=== PATIENT | female | born 1985 | race Caucasian/White ===

== ENCOUNTER 2016-08-18 05:50 | Inpatient (IN) | payer BC ==
[~2016-08-18] VITALS: Ht 162.6 cm; Wt 106.9 kg
[2016-08-18] VITALS (7 sets, daily range): BP systolic 109–131; BP diastolic 61–77; PULSE 71–96; RESP 18–20; Ht 162.6 cm; Wt 106.9 kg
[~2016-08-18 05:50] MED LIST: IBUP800T25 PO; PERCOCET PO; PREN1TAB62 PO
[2016-08-18] MEDS ORDERED: LACTATED RINGER'S 1,000 ML IV SCH (06:14)
[2016-08-18] MEDS ORDERED: CEFAZOLIN 2 GM/50 ML (PMX) 50 ML IV SCH (06:30)
[2016-08-18] MEDS ORDERED: OXYTOCIN 30 UNITS/LR 500 ML IV PRN ×2 (06:30→09:30)
[2016-08-18] MEDS ORDERED: OXYTOCIN 30 UNITS/LR 500 ML IV SCH ×2 (06:30→10:30)
[2016-08-18] MEDS ORDERED: CARBOPROST 250 MCG INJ IM PRN ×2 (06:30→09:30)
[2016-08-18] MEDS ORDERED: MISOPROSTOL 200 MCG TAB PR PRN ×2 (06:30→09:30)
[2016-08-18] MEDS ORDERED: METHYLERGONOVINE 0.2 MG INJ IM PRN ×2 (06:30→09:30)
[2016-08-18 06:31] LABS: ADD SCAN DIFF NO
[2016-08-18 06:33] LABS: BASOPHILS % 0.3 % (0.0-2.0); EOSINOPHILS % 0.5 % (0.0-7.0); HEMATOCRIT 34.2 % (37.0-47.0); HEMOGLOBIN 10.5 g/dl (12.0-16.0); LYMPHOCYTES # 2.6 10^3/ul (0.8-2.9); LYMPHOCYTES % 32.1 % (15.0-51.0); MEAN CORPUSCULAR HEMOGLOBIN 23.2 pg (29.0-33.0); MEAN CORPUSCULAR HGB CONC 30.7 g/dl (32.0-37.0); MEAN CORPUSCULAR VOLUME 75.5 fl (82.0-101.0); MEAN PLATELET VOLUME 11.5 fl (7.4-10.4); MONOCYTE # 0.5 10^3/ul (0.3-0.9); MONOCYTES % 6.1 % (0.0-11.0); NEUTROPHIL # 4.9 10^3/ul (1.6-7.5); NEUTROPHILS % 60.6 % (39.0-77.0); PLATELET COUNT 199 10^3/UL (140-415); RED BLOOD COUNT 4.53 10^6/ul (4.20-5.40); RED CELL DISTRIBUTION WIDTH 16.3 % (11.5-14.5)
[2016-08-18 06:45] LABS: INR 0.91; PROTIME 12.2 Sec (12.2-14.2)
[2016-08-18 06:46] LABS: PARTIAL THROMBOPLASTIN TIME 28.1 Sec (25.0-35.0)
[2016-08-18] MEDS ORDERED: LACTATED RINGER'S 1,000 ML IV ONE (07:13)
[2016-08-18] MEDS ORDERED: ONDANSETRON 4 MG INJ IV ONE (07:30)
[2016-08-18] MEDS ORDERED: CITRIC ACID/NA CITRATE 30 ML CUP PO ONE (07:30)
[2016-08-18] MEDS ORDERED: FENTAnyl 50 MCG/ML VIAL ONE (07:36)
[2016-08-18] MEDS ORDERED: morphine SULFATE/PF (10 MG/10 ML) INJ ONE (07:36)
[2016-08-18] MEDS ORDERED: ONDANSETRON 4 MG INJ ONE (07:37)
[2016-08-18] MEDS ORDERED: METOCLOPRAMIDE 10 MG INJ ONE (07:38)
[2016-08-18] MEDS ORDERED: CITRIC ACID/NA CITRATE 30 ML CUP ONE (07:39)
[2016-08-18] MEDS ORDERED: OXYTOCIN 30 UNITS/LR 500 ML IV ONE ×2 (07:53→08:32)
[2016-08-18] MEDS ORDERED: ONDANSETRON 4 MG INJ IV PRN (08:30)
[2016-08-18] MEDS ORDERED: DIPHENHYDRAMINE 50 MG INJ IV PRN (08:30)
[2016-08-18] MEDS ORDERED: HYDROmorphONE 1 MG/ML SYG IV PRN ×2 (08:30)
[2016-08-18] MEDS ORDERED: PROCHLORPERAZINE 10 MG INJ IV PRN (08:30)
[2016-08-18] MEDS ORDERED: NALOXONE (0.4 MG/ML) INJ IV PRN (08:30)
[2016-08-18] MEDS ORDERED: PHENYLephrine (100 MCG/ML) 5ML SYG ONE (08:44)
[2016-08-18] MEDS: LACTATED RINGER'S 1,000 ML IV SCH ×3 (09:15→22:50)
--- NOTE | 2016-08-18 09:24 | HP ---
Date/Time of Note Date/Time of Note DATE: 08/18/16 TIME: 09:20 OB - History Hx of Present Free Text/Dictation 30 y.o. with an IUP at 39w1d here for a repeat . Last Menstrual Period: Nov 18, 2015 Estimated Due Date: Aug 24, 2016 : 2 Para: 1 Care: Good Care Ultrasounds: Normal mid trimester US Obstetrical Complications: Gestational Diabetes Medical Complications: None Past Family/Social History * Past Medical, Surgical, Family and Obstetric Histories reviewed from chart. Blood Type: A+ Rubella: immune RPR/VDRL: Negative GBS Status: Negative HBsAG: Negative OB Admission Exam Vital Signs Vital Signs Vital Signs Date Time Temp Pulse Resp B/P Pulse Ox O2 Delivery O2 Flow Rate FiO2 08/18/16 06:04 98.5 96 18 126/72 Room Air Physical Exam HEENT: WNL Heart: Rhythm Normal Lungs: Clear Abdomen: WNL Extremities: Edema (2+edema) Reflexes: Normal Cervical Dilatation: None Effacement: 50% Station: -3 Membranes: Intact Amniotic Fluid: Clear Heart Rate: 140's Accelerations: Accelerations Present Decelerations: No Decelerations Varibility: Moderate Contractions on Admission: None Last 72 hours Lab Results CBC & BMP 08/18/16 06:15 OB Assessment/Plan Reason for admission: section (Repeat) Plan: Section VALDEZ PURI MD Aug 18, 2016 09:24
[2016-08-18] MEDS ORDERED: LANOLIN 7 GM TUBE TOP PRN (09:30)
[2016-08-18] MEDS: IBUPROFEN 800 MG TAB PO SCH ×2 (14:00→22:00)
[2016-08-19 00:30] VITALS: BP 116/61; PULSE 108; RESP 19
[2016-08-19] MEDS: KETOROLAC 30 MG INJ IV PRN ×3 (00:45→06:27)
[2016-08-19] MEDS: LACTATED RINGER'S 1,000 ML IV SCH (04:52)
[2016-08-19] MEDS: IBUPROFEN 800 MG TAB PO SCH ×3 (06:00→22:00)
[2016-08-19 08:09] VITALS: BP 108/57; PULSE 96; RESP 17
[2016-08-19 08:12] LABS: ADD SCAN DIFF NO
[2016-08-19 08:17] LABS: BASOPHILS % 0.1 % (0.0-2.0); EOSINOPHILS % 0.2 % (0.0-7.0); HEMATOCRIT 28.9 % (37.0-47.0); HEMOGLOBIN 8.9 g/dl (12.0-16.0); LYMPHOCYTES # 1.5 10^3/ul (0.8-2.9); LYMPHOCYTES % 16.6 % (15.0-51.0); MEAN CORPUSCULAR HEMOGLOBIN 23.5 pg (29.0-33.0); MEAN CORPUSCULAR HGB CONC 30.8 g/dl (32.0-37.0); MEAN CORPUSCULAR VOLUME 76.3 fl (82.0-101.0); MEAN PLATELET VOLUME 10.8 fl (7.4-10.4); MONOCYTE # 0.7 10^3/ul (0.3-0.9); MONOCYTES % 8.2 % (0.0-11.0); NEUTROPHIL # 6.6 10^3/ul (1.6-7.5); NEUTROPHILS % 74.6 % (39.0-77.0); PLATELET COUNT 150 10^3/UL (140-415); RED BLOOD COUNT 3.79 10^6/ul (4.20-5.40); RED CELL DISTRIBUTION WIDTH 16.4 % (11.5-14.5); WHITE BLOOD COUNT 8.9 10^3/ul (4.8-10.8)
[2016-08-19] MEDS: OXYCODONE/ACETAMINOPHEN (5/325) TAB PO PRN ×2 (10:33→17:31)
[2016-08-19 16:00] VITALS: BP 111/68; PULSE 75; RESP 18
[2016-08-19 20:00] VITALS: BP 126/72; PULSE 104; RESP 18
[2016-08-19] MEDS ORDERED: KETOROLAC 30 MG INJ IM STA (20:04)
--- NOTE | 2016-08-19 23:26 | QN ---
Documentation Comment POD #1 s/p repeat Pt doing well until this evening when her oral pain meds were not adequate and she needed an IM injection of Toradol. She is much better now. + flatus. No BM yet. Breast feeding well with colostrum only so far and having to supplement due to hyperbilirubinemia of the baby. T=98.2 BP 126/72. Abdomen soft, nondistended. Dressing is clean, dry and intact. Lochia moderate. Extremities NT, with 2+ edema. Hgb 8.9 Platelets 150K. P: Continue care. Encourage pt to ask for pain meds regularly and not to wait until the pain level is severe. VALDEZ PURI MD Aug 19, 2016 23:26
[2016-08-20] MEDS: OXYCODONE/ACETAMINOPHEN (5/325) TAB PO PRN ×4 (02:12→20:13)
[2016-08-20 04:00] VITALS: BP 126/70; PULSE 106; RESP 18
--- NOTE | 2016-08-20 04:07 | OPR ---
DATE OF OPERATION: 08/18/2016 PREOPERATIVE DIAGNOSES: Intrauterine at 39 weeks 1 day, previous section x1, for repeat . POSTOPERATIVE DIAGNOSES: 1. Intrauterine at 39 weeks 1 day, previous section x1, for repeat . 2. Status post delivery of a viable male infant weighing 4575 grams or 10 pounds 1 ounce with scores of 9 and 9. OPERATION PERFORMED: Repeat low transverse section. SURGEON: Usama Alexandra MD AUTO JOB ESTIMATOR: Natalee Bailey MD ANESTHESIOLOGIST: Clarice Borrego MD ANESTHESIA: Spinal block. ESTIMATED BLOOD LOSS: 600 mL. COMPLICATIONS: None. PROCEDURE IN DETAIL: The patient was brought to the operating room, placed on the operating room ta ble, and was sat up for a spinal block. She was then laid in the supine position, a Vaz catheter was placed, and she was prepped and draped in the usual sterile fashion. Pfannenstiel incision was made at the site of the old scar using a knife through the skin and subcutaneous tissue down to the level of the fascia. Fascia was incised and extended bilaterally using scissors and Bovie cautery. The superior edge of the fascia was grasped with Alanis clamps, and the rectus muscles were separat ed from the overlying fascia using blunt dissection. This was repeated at the lower edge of the inc ision as well. The rectus muscles were in midline with a Mame clamp, and the anterior pe ritoneum was bluntly entered using the surgeon's fingers. The incision was then stretched open with hands. The bladder blade and Crocker retractor were placed in the incision. The bladder flap w as developed. With Metzenbaum scissors and blunt dissection, the lower uterine segment was incised and cut high and entered using a Mame clamp. The fluid was clear. The incision was stretched open with hands. The head was elevated through the incision and was not really engaged in the pel vis. With gentle fundal pressure, it was easily delivered. The mouth and nares were bulb suctioned , and the rest of the baby was then delivered. The cord was doubly clamped and cut, and the baby wa s brought over to the warmer with the respiratory team in attendance. A cord blood collection was o btained with kit present for both cord blood and a piece of cord. When that was completed, then reg ular cord blood was obtained. The placenta was then manually extracted. The uterus was externalize d, wrapped in a moist lap, and a dry lap was used to clean the interior of the uterus. The incision was then closed in 2 layers using #1 chromic in a running locking stitch with excellent tissue appr oximation and hemostasis. Tubes and ovaries were examined and noted to be normal. The pelvis was i rrigated. The uterus was replaced back into the abdomen. Incision was examined again and noted to be dry. The anterior peritoneum was then closed using 2-0 chromic in a running stitch. The rectus muscles were brought back together at midline with a running stitch of the same material. The under belly of the fascia was examined and noted to be dry. The fascia was then closed using 0 [address] sut ure in a running stitch from each lateral edge to midline with overlap at the midline. Subcutaneous tissue was irrigated well, cautery applied where needed for hemostasis. The subcutaneous layer was then closed using 2-0 chromic in a running stitch. The skin was then closed with 3-0 Monocryl in a subcuticular stitch. Steri-Strips with Mastisol were placed. A pressure dressing was applied over all. The procedure was then terminated. The patient was brought to the recovery room in excellent condition having tolerated the procedure well. Dictated By: USAMA HER/ELIDA Conf#: [id number] DID#: [id number]
[2016-08-20] MEDS: IBUPROFEN 800 MG TAB PO SCH ×3 (05:32→21:54)
[2016-08-20 08:28] VITALS: BP 122/61; PULSE 100; RESP 18
[2016-08-20 16:29] VITALS: BP 120/69; PULSE 103; RESP 18
[2016-08-20 20:13] VITALS: BP 132/73; PULSE 100; RESP 18
--- NOTE | 2016-08-20 21:11 | PD.PPDC ---
SUPPLIER QUALITY MANAGER Discharge Instruction Condition Patient Condition: Good Diet Diet: Resume Regular Diet Activity/Restrictions Activity: Bedrest May be up to bathroom May be up for meals May Shower Restrictions: No Exercising No Lifting No Driving Minimize Walking Minimize Stair-climbing No Sexual Activity Nothing in the Vagina No [address] [place] No Tampons, douche Wound/Drain Care Instructions Wound/Drain Care Instructions: Remove Steri Strips in 2 weeks Follow-up Follow-up with Physician: 2 Return to clinic for COMPLIANCE COUNSEL Instructions: Fever greater than 101 Chills Worsening abdominal pain Excessive Vaginal Bleeding OB Instructions: Breast Tenderness Depression Surgical Instructions: Incisional Drainage Incisional Redness VALDEZ PURI MD Aug 20, 2016 21:10
--- NOTE | 2016-08-20 21:12 | DS ---
Date/Time of Note Date/Time of Note DATE: 08/20/16 TIME: 21:11 Obstetrical Discharge Record Final Diagnosis Final Diagnosis: Term delivered Section Section: Repeat Complications Gestational Diabetes Augmentation: No Induction: No Condition on Discharge Physical Assessment Last Vitals: T=98.2 BP 132/73 Voiding: Yes Bowel Movement: Yes Breast: Filling Fundus: Firm Abdomen and Incision: Clean, dry, and intact. Slightly moist due to pannus so placed a pad to help keep it dry. Calf Tenderness: No Patient Condition: Good VALDEZ PURI MD Aug 20, 2016 21:12
[2016-08-21] MEDS: OXYCODONE/ACETAMINOPHEN (5/325) TAB PO PRN ×2 (01:19→12:10)
[2016-08-21 04:45] VITALS: BP 130/71; PULSE 114; RESP 18
[2016-08-21] MEDS: IBUPROFEN 800 MG TAB PO SCH ×2 (05:39→14:40)
[2016-08-21 08:10] VITALS: BP 126/72; PULSE 104; RESP 19
[2016-08-21] MEDS ORDERED: DIPHTH/TET/ACEL PERTUSS (ADULT) 0.5 ML VIAL IM* ONE (09:00)
[2016-08-21 16:15] VITALS: BP 133/87; PULSE 110; RESP 20
== END 2016-08-21 17:10 | disposition home or self-care (01) | DRG 766 ==
LOC: L-D 05:50 → PP1 12:30
PROVIDERS: ADMIT Obstetrics & Gynecology; ATTEND Obstetrics & Gynecology
PROC: 10D00Z1 Extraction of Products of Conception, Low, Open Approach (ICD-10-PCS; principal; 2016-08-18 07:30)
DX: O34.211 Maternal care for low transverse scar from previous cesarean delivery (principal); O24.429 Gestational diabetes mellitus in childbirth, unspecified control; Z3A.39 39 weeks gestation of pregnancy; Z37.0 Single live birth
CPT/HCPCS: 82947; 85025; 85610; 85730; 86592; 86850; 86900; 86901; 90715; 94760; 99464; J0690; J1885; J2274; J2370; J2405; J2590; J2765; J3010; J7120